=== PATIENT | female | born 1950 | race African-American/Black ===

== ENCOUNTER → 2018-01-28 | Day surgery (SDC) | payer MEDICARE ==
[~2018-01-28] VITALS: Ht 165.1 cm; Wt 108.9 kg
[~2018-01-28] MED LIST: ALLEGRA ALLERG180 M1 PO; ASPIRIN EC81 M1 PO; CARDURA2 M1 PO; DEXILANT60 M1 PO; DILTIAZEM 24HR240 MG PO; EMERGEN-C 1,01000 MG PO; FLUTICASONE PRO16 GM NASB; VALSARTAN-HCTZ1 EAC4 PO
[2018-01-28 10:15] LABS: ABSOLUTE BASOPHIL COUNT 0 /CUMM (0.0-0.2); ABSOLUTE EOSINOPHIL COUNT 0.2 /CUMM (0.0-0.7); ABSOLUTE GRANULOCYTE CT 5.1 /CUMM (1.4-6.5); ABSOLUTE LYMPH COUNT 2.1 /CUMM (1.2-3.4); ABSOLUTE MONOCYTE COUNT 0.5 /CUMM (0.10-0.60); BASOPHIL % 0.5 % (0.0-2.0); GRANULOCYTE % 63.6 % (42.2-75.2); HEMATOCRIT 32.7 % (37-47); MEAN CORPUSCULAR HGB 31.3 PG (27.0-31.0); MEAN CORPUSCULAR HGB CONC 33.3 G/DL (33.0-37.0); MEAN PLATELET VOLUME 8.9 FL (7.4-10.4); PLATELET COUNT 239 /CUMM (130-400); RBC DISTRIBUTION WIDTH 13.7 % (11.5-14.5); RED BLOOD CELL CT 3.48 /CUMM (4.20-5.40); WHITE BLOOD CELL COUNT 8.1 /CUMM (4.8-10.8)
--- NOTE | 2018-01-30 10:36 | Operative Report ---
Operative/Inv Procedure Report Surgery Date: 01/28/18 Name of Procedure: Excision of deep excision of deep back lipoma, 9 cm diameter Pre-Operative Diagnosis: Back lipoma Post-Operative Diagnosis: Same Estimated Blood Loss: scant Surgeon/Molding Utility Worker: Eric FERNANDEZ,Roger Mcgill Anesthesia: local monitored anesthesi Operative/Procedure Note Note: Patient was positioned supine after successful induction of Mac sedation she was repositioned in left lateral down and her right upper back were prepped and draped in the usual sterile fashion. We had planned an incision along well was lines over the palpable mass was about 6 cm long we injected local anesthetic both superficially and deep the mid incision with a 15 blade we deepened it through the dermis and right there you could already see the lobulated mass very superficial but it continued down deep into the muscle layer subfascially was very lobulated was tedious keeping it in one piece and chasing all the extensions deep, care was taken to avoid injury to surrounding nerves and vessels we added local anesthetic in these deep levels, we measured it 9 cm checked the area for hemostasis and closed in layers using interrupted 3-0 Vicryl sutures deep and a running 4-0 nylon for the skin itself followed by Mastisol Steri-Strips Telfa and Tegaderm. EBL minimal lap and sponge counts correct wound expectancy clean IV fluids crystalloid complications none patient tolerated the procedure well was extubated and returned to recovery room in satisfactory condition.
== END ==
LOC: STS 02:35
PROVIDERS: Surgery
DX: D17.1 Benign lipomatous neoplasm of skin and subcutaneous tissue of trunk (principal); I10 Essential (primary) hypertension
CPT/HCPCS: 36415; 88304; 93005; 93010; J0690; J2250; J2765